=== PATIENT | male | born 1995 | race American Indian/Alaskan Native ===

== ENCOUNTER 2017-09-19 13:45 | Emergency (ER) | payer MEDICAID ==
[2017-09-19 14:28] VITALS: BMI 24.0
[2017-09-19 14:30] VITALS: BP 140/82; PULSE 92; RESP 14; TEMP 97.8; O2SAT 98
[2017-09-19] MEDS ORDERED: Bacitracin 500 Units/gm Oint Foilpak UD TOP ONE (14:45)
[2017-09-19] MEDS ORDERED: Tmp-Smz 800 mg-160 mg DS Tab PO STA (14:46)
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
[2017-09-19] MEDS ORDERED: Bacitracin 500 Units/gm Oint Foilpak UD ONE (15:04)
[2017-09-19] MEDS ORDERED: Tmp-Smz 800 mg-160 mg DS Tab ONE (15:04)
== END 2017-09-19 15:21 | disposition home or self-care (01) ==
LOC: C.ER 13:45
DX: T24.132A Burn of first degree of left lower leg, initial encounter (principal); X16.XXXA Contact with hot heating appliances, radiators and pipes, initial encounter; L03.116 Cellulitis of left lower limb

== ENCOUNTER 2017-12-29 10:47 | Emergency (ER) | payer MEDICAID ==
[2017-12-29 10:47] VITALS: BMI 24.0
[2017-12-29] MEDS ORDERED: Sodium Chloride 0.9% 1,000 ML IV ONE (12:19)
[2017-12-29] MEDS ORDERED: Albuterol 0.083% Inhal Sol (2.5 mg/3 mL) UD IH STA (12:20)
[2017-12-29] MEDS ORDERED: Sodium Chloride 0.9% 1,000 ML ONE (12:37)
[2017-12-29] MEDS ORDERED: Albuterol 0.083% Inhal Sol (2.5 mg/3 mL) UD ONE (12:41)
--- NOTE | 2017-12-29 12:44 | RAD ---
HISTORY: SOB COMPARISON: No prior. TECHNIQUE: Chest PA and lateral FINDINGS: LUNGS: No active pulmonary disease. PLEURA: No significant pleural effusion identified. No pneumothorax apparent. CARDIOVASCULAR: Normal. OSSEOUS STRUCTURES: No significant abnormalities. VISUALIZED UPPER ABDOMEN: Normal. OTHER FINDINGS: None. IMPRESSION: No active disease.
[2017-12-29 13:18] LABS: BASO # 0.1 K/uL (0.0-0.2); BASO % 0.7 % (0.0-2.0); EOS # 0.1 K/uL (0.0-0.7); EOS % 0.9 % (0.0-4.0); HEMOGLOBIN 15.8 g/dL (12.0-18.0); LYMPH # 1.1 K/uL (1.0-4.3); LYMPH % 9.7 % (20.0-40.0); MEAN CELL VOLUME 87.6 fL (80.0-94.0); MEAN CORPUSCULAR HEMOGLOBIN 30.1 pg (27.0-31.0); MEAN CORPUSCULAR HGB CONC 34.4 g/dL (33.0-37.0); MEAN PLATELET VOLUME 8.7 fL (7.2-11.7); MONO # 1.3 K/uL (0.0-0.8); MONO % 11.8 % (0.0-10.0); NEUT # 8.4 K/uL (1.8-7.0); NEUT % 76.9 % (50.0-75.0); NRBC % 0.2 % (0.0-2.0); PLATELET COUNT 265 K/uL (130-400); RBC 5.25 Mil/uL (4.40-5.90); RED CELL DISTRIBUTION WIDTH 14.9 % (11.5-14.5); WHITE BLOOD COUNT 10.9 K/uL (4.8-10.8)
[2017-12-29 13:31] LABS: ALB/GLOB RATIO 1.2 (1.0-2.1); ALBUMIN 4.1 g/dL (3.5-5.0); ALT/SGPT 65 U/L (21-72); AST/SGOT 55 U/L (17-59); BLOOD UREA NITROGEN 10 mg/dL (9-20); CALCIUM 9.1 mg/dl (8.6-10.4); GFR AFRICAN-AMERICAN > 60; GFR NON-AFRICAN AMERICAN > 60; LIPASE 37 U/L (23-300)
[2017-12-29] MEDS ORDERED: MethylPREDNISolone 40 mg Vial ONE (13:50)
[2017-12-29 13:52] LABS: LYMPHOCYTE 18 % (20-40); MONOCYTE 4 % (0-10); NEUTROPHIL 78 % (50-75); PLATELET ESTIMATE NORMAL (NORMAL); TOTAL CELLS COUNTED 100
--- NOTE | 2017-12-29 14:07 | C.PDOC ---
History Of Present Illness 22y male, presents to ER with complaints of nasal congestion, productive cough, chest tightness, fever and bodyaches which all started yesterday. He also reports an associated sore throat. On episode of vomiting this morning. He does report + sick contacts at work. Denies chest pain, sob, neck pain, headache, abdominal pain, dysuria, or hematuria. Time Seen by Provider: 12/29/17 11:44 Chief Complaint (Nursing): Flu-like Symptoms History Per: Patient History/Exam Limitations: no limitations Onset/Duration Of Symptoms: Days (1) Current Symptoms Are (Timing): Still Present Location Of Pain: Throat, Diffuse Myalgias Sick Contacts (Context): Individual(s) At Work Associated Symptoms: Fever, Sore Throat, Cough, Sputum, Myalgias, Nasal Congestion Additional History Per: Patient Past Medical History Reviewed: Historical Data, Nursing Documentation, Vital Signs Vital Signs: Last Vital Signs Temp 98.3 F 12/29/17 14:23 Pulse 95 H 12/29/17 14:23 Resp 18 12/29/17 14:23 BP 124/83 12/29/17 14:23 Pulse Ox 96 12/29/17 17:49 - Medical History PMH: No Chronic Diseases Surgical History: No Surg Hx Family History: States: Unknown Family Hx - Social History Hx Alcohol Use: Yes Hx Substance Use: No - Immunization History Hx Tetanus Toxoid Vaccination: No Hx Influenza Vaccination: No Hx Pneumococcal Vaccination: No Review Of Systems Except As Marked, All Systems Reviewed And Found Negative. Constitutional: Positive for: Fever, Malaise ENT: Positive for: Throat Pain Cardiovascular: Negative for: Chest Pain Respiratory: Positive for: Cough, Sputum. Negative for: Shortness of Breath Physical Exam - Physical Exam Appears: Non-toxic, Other (obese) Skin: Normal Color, Warm, Dry Head: Atraumatic, Normacephalic Eye(s): bilateral: Normal Inspection, EOMI Ear(s): Bilateral: Normal Nose: Other (nasal congestion) Oral Mucosa: Moist Throat: Normal, No Erythema, No Exudate Neck: Normal ROM, Supple Chest: Symmetrical, Other (persistent cough) Cardiovascular: Rhythm Regular Respiratory: Normal Breath Sounds, No Wheezing Gastrointestinal/Abdominal: Normal Exam, Soft, No Tenderness Extremity: Normal ROM, No Pedal Edema Neurological/Psych: Oriented x3 ED Course And Treatment - Laboratory Results Result Diagrams: 12/29/17 13:04 12/29/17 13:04 O2 Sat by Pulse Oximetry: 96 (RA) Pulse Ox Interpretation: Normal - Other Rad CXR X-Ray: Read By Radiologist Interpretation: FINDINGS: LUNGS: No active pulmonary disease. PLEURA: No significant pleural effusion identified. No pneumothorax apparent. CARDIOVASCULAR: Normal. OSSEOUS STRUCTURES: No significant abnormalities. VISUALIZED UPPER ABDOMEN: Normal. OTHER FINDINGS: None. IMPRESSION: No active disease. Progress Note: Labs, rapid flu, CXR ordered. Patient given albuterol, benadryl, solumedrol, tylenol, IV Fluids. On re-assessment, patient reports improvement after the nebulizer treatment. Patient is resting comfortably with no wheezing, chest pain, or retractions. No leg swelling. Oxygen saturation WNL -98%. No tachycardia. Pt requests to be discharge, notes he feels well. Patient was advised to follow up with physician/clinic in 1-2 days and return to ED if symptoms worsen or persist. Disposition - Disposition Disposition: HOME/ ROUTINE Disposition Time: 14:04 Condition: STABLE Additional Instructions: Follow up with your primary medical doctor or clinic in 2-5 days for further evaluation. Take medications as prescribed. Return to the emergency department at any time if symptoms persist or worsen. 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 - Scribe Statement The provider has reviewed the documentation as recorded by the Scribe (Marcia Carl) Provider Attestation: All medical record entries made by the Scribe were at my direction and personally dictated by me. I have reviewed the chart and agree that the record accurately reflects my personal performance of the history, physical exam, medical decision making, and the department course for this patient. I have also personally directed, reviewed, and agree with the discharge instructions and disposition.
[2017-12-29 14:24] VITALS: BP 124/83; PULSE 95; RESP 18; TEMP 98.3
[2017-12-29 15:26] VITALS: O2SAT 96
== END 2017-12-29 14:24 | disposition home or self-care (01) ==
LOC: C.ER 10:47
DX: J40 Bronchitis, not specified as acute or chronic (principal)
CPT/HCPCS: 71046; 80053; 83690; 85025; 87804; 96361; 96374; 96375; 99284; J1885; J2930; J7030